=== PATIENT | male | born 1955 ===

== ENCOUNTER 2023-06-28 05:30 | Day surgery (SDC) | payer OTHER ==
[~2023-06-28] VITALS: Ht 170.2 cm; Wt 77.1 kg
[~2023-06-28 05:30] MED LIST: DORZOLAMIDE HCL10 ML OPHT; DOXAZOSIN MESYLA2 MG PO; METFORMIN HCL1000 M1 PO; XELPROS2.5 ML OP; ZESTRIL2.5 MG PO
[2023-06-28] MEDS ORDERED: LEVOFLOXACIN500 MG PO (10:22)
== END 2023-06-28 12:55 | disposition home or self-care (01) ==
LOC: CIR.AMB 05:30
PROVIDERS: ATTEND Otolaryngology Otology & Neurotology
DX: H90.42 Sensorineural hearing loss, unilateral, left ear, with unrestricted hearing on the contralateral side (principal); H90.5 Unspecified sensorineural hearing loss; Z20.822 Contact with and (suspected) exposure to COVID-19
CPT/HCPCS: 69930; L8614

== ENCOUNTER 2025-07-03 06:00 | Day surgery (SDC) | payer OTHER ==
[2025-06-30 08:26] VITALS: BP 128/77
[2025-06-30 08:31] LABS: URINE APPEARANCE Clear; URINE BILIRRUBIN Negative (NEGATIVE); URINE BLOOD Negative; URINE COLOR Yellow; URINE GLUCOSE Negative (NEGATIVE); URINE KETONE Negative (NEGATIVE); URINE LEUKOCYTE Negative; URINE NITRATE Negative; URINE PROTEIN Negative (NEGATIVE); URINE UROBILINOGEN 0.2 E.U./dl
[2025-06-30 08:36] LABS: BASO % 0.6 % (0.1-1.2); EOS # 0.23 (0.04-0.54); EOS % 3.2 % (0.7-7.0); LYMPH # 1.28 (1.18-3.74); LYMPH % 17.9 % (19.3-53.1); MEAN PLATELET VOLUME 9.80 fl (9.4-12.4); MONO # 0.50 (0.24-0.82); MONO % 7.0 % (4.7-12.5); NEUT # 5.08 (1.56-6.13); NEUT % 70.9 % (34.0-71.1); RED CELL DISTRIBUTION WIDTH 13.1 % (11.6-14.4)
[2025-06-30 08:55] LABS: INR 0.98
[2025-06-30 09:07] LABS: BUN CREA RATIO 21.0 (7.0-25.0); CREATININE SERUM 0.67 mg/dL (0.70-1.30); GFR 117.96; GLUCOSE FASTING 131.0 mg/dL (65-100); OSMOLALITY SERUM 285.0 MOSM/KG (275-295)
[2025-06-30 09:16] LABS: URINE BACTERIA 3.5 uL (0.0-1933); URINE CAST 0.00 uL (0.0-1.40); URINE EPITHELIAL CELLS 0.9 uL (0.0-38.8); URINE RBC 1.4 uL (0.0-20.8); URINE WBC 0.6 uL (0.0-23.2)
[~2025-07-03] VITALS: Ht 170.2 cm; Wt 74.4 kg
[~2025-07-03 06:00] MED LIST changes: +LEVOFLOXACIN500 MG PO
[2025-07-03] MEDS ORDERED: LIDOCAINE HCL 1%/EPINEPHRINE 20ML VIAL IJ ONE (06:45)
[2025-07-03] MEDS ORDERED: EPINEPHRINE HCL/PF 1 MG/ML AMPUL ONE (06:45)
[2025-07-03] MEDS ORDERED: POVIDONE-IODINE 118 ML BOTT TOP ONE (06:45)
[2025-07-03] MEDS ORDERED: CEFAZOLIN SODIUM 1,000 MG VIAL ONE (06:50)
[2025-07-03] MEDS ORDERED: LEVOFLOXACIN500 MG PO (11:19)
== END 2025-07-03 13:50 | disposition home or self-care (01) ==
LOC: CIR.AMB 06:00
PROVIDERS: ATTEND Otolaryngology Otology & Neurotology
DX: H90.41 Sensorineural hearing loss, unilateral, right ear, with unrestricted hearing on the contralateral side (principal); H90.3 Sensorineural hearing loss, bilateral
CPT/HCPCS: 69930; L8614